=== PATIENT | male | born 1995 | race Caucasian/White ===

== ENCOUNTER 2017-10-07 11:17 | Day surgery (SDC) | payer OTHER ==
[2017-10-01 10:30] VITALS: BMI 25.1
[~2017-10-07 11:17] MED LIST: DEXAMETHASONE SOD PHOSPHATE 10 MG/ML 1 ML VIAL IV ONE; LACTATED RINGERS 1,000 ML IV SCH; ONDANSETRON ODT 4 MG TAB PO ONE; Pre Op ABX Message 1 EACH MISC MISCELLANE ONE; ceFAZolin 1,000 MG in DEXTROSE/WATER 1 50ML.BAG IVPB ONE; ceFAZolin 2,000 MG in DEXTROSE/WATER 1 50ML.BAG IVPB ONE; ceFAZolin IN SWFI 2 GM/20 ML SYRINGE IVP ONE
[2017-10-07] MEDS ORDERED: LACTATED RINGERS 1,000 ML IV ONE ×2 (11:29→14:16)
[2017-10-07] MEDS ORDERED: LIDOCAINE 1% 20 ML VIAL (10MG/ML) FOR IV START INTRADERMA ONE (11:39)
[2017-10-07] MEDS ORDERED: ONDANSETRON 4 MG/2 ML VIAL IVP ONE (11:43)
[2017-10-07] MEDS ORDERED: PROPOFOL 10 MG/ML 20 ML VIAL IV ONE (12:34)
[2017-10-07] MEDS ORDERED: MIDAZOLAM 2 MG/2 ML VIAL ONE (12:34)
[2017-10-07] MEDS ORDERED: ALBUTEROL INHALER 60 PUFF/8 GM INHALER INHALATION ONE (12:34)
[2017-10-07] MEDS ORDERED: fentaNYL (PF) 50 MCG/ML 2 ML AMP ONE (12:34)
[2017-10-07] MEDS ORDERED: MORPHINE SULFATE 10 MG/ML SYRINGE ONE (12:34)
[2017-10-07] MEDS ORDERED: SUCCINYLCHOLINE CHLORIDE 100 MG/5 ML SYR IV ONE (12:34)
[2017-10-07] MEDS ORDERED: LIDOCAINE 1% INJ 10MG/ML (20 ML MDV) ONE (12:34)
[2017-10-07] MEDS ORDERED: ceFAZolin 1,000 MG in SODIUM CHLORIDE 0.9% 1,000 ML IRRIGATION ONE (13:09)
[2017-10-07] MEDS: MEPERIDINE 50 MG/ML SYRINGE IVP ONE ×2 (14:29→14:34)
[2017-10-07 14:42] VITALS: TEMP 98.8
[2017-10-07] MEDS: MORPHINE SULFATE 4 MG/ML SYRINGE IV PRN ×2 (14:48→15:13)
--- NOTE | 2017-10-07 15:19 | OP ---
OPERATIVE REPORT DATE OF PROCEDURE: 10/07/2017. PREOPERATIVE DIAGNOSES: 1. Right knee anterior cruciate ligament rupture. 2. Right knee medial meniscus tear. 3. Right knee lateral meniscus tear. POSTOPERATIVE DIAGNOSIS: Right knee complete anterior cruciate ligament rupture. PROCEDURE PERFORMED: Right knee anterior cruciate ligament reconstruction with hamstring autograft. SURGEON: Elijah Saini MD. SURGICAL SALES REPRESENTATIVE: DORINDA Aguilar. ANESTHESIA: General endotracheal. ESTIMATED BLOOD LOSS: Minimal. TOURNIQUET TIME: 44 minutes at 250 mmHg. DRAINS: None. COMPLICATIONS: None apparent. DISPOSITION: Postanesthesia care unit preop. INDICATIONS: Mack is a 22-year-old male who injured his right knee. Physical examination and MRI are consistent with a rupture of the anterior cruciate ligament. There is also suggestion of medial and lateral meniscus tears. A long discussion with him with regard to treatment options. At this point, he does wish to proceed with operative intervention. The risks were explained to the patient which include, but are not limited to risk of infection, nerve damage, bleeding, pain, instability, deep vein thrombosis which could lead to fatal pulmonary embolism and graft rerupture. The patient understands these risks and wished to proceed with surgical procedure. EXAMINATION UNDER ANESTHESIA: Range of motion: Right full, left full. Effusion: Right mild, left none. Charlette: Right increased 5 mm with a soft end point. Left normal with good end point. Pivot shift: Right grade 1, left grade 0. Posterior drawer: Right normal with good end point. Left normal with good end point. Varus laxity: Right none, left none. Valgus laxity: Right none, left none. External rotation: Right normal, left normal. ARTHROSCOPIC FINDINGS: Suprapatellar pouch normal. Medial gutter normal. Lateral gutter normal. Patella: Normal chondral surfaces. Trochlea: Normal chondral surfaces. Patellar tracking is normal. Medial femoral condyle: Normal chondral surfaces. Medial tibial plateau: Normal chondral surfaces. Medial meniscus normal. Lateral femoral condyle: Normal chondral surfaces. Lateral tibial plateau: Normal chondral surfaces. Lateral meniscus was normal. Anterior cruciate ligament: Complete midsubstance rupture of the anterior cruciate ligament. Posterior cruciate ligament is normal. DETAILS OF PROCEDURE: The patient identified in the preoperative holding area. Surgical site was marked by both the patient myself. He was given 2 g of Ancef IV for prophylactic purposes. He was then transferred to the operative suite. He was placed supine on the operative table. General anesthetic was then administered dosed per the anesthesia without apparent complication. Examination under anesthesia was then performed of both knees. The findings noted above. The tourniquet was then placed high on the right upper thigh well-padded in preparation for surgery. The patient's right lower extremity is then prepped and draped in usual sterile fashion. Standard surgical pause undertaken to ensure that we were operating the correct site and that appropriate preoperative antibiotics were given. All staff in the room in agreement and we proceeded. The knee was then insufflated with 120 mL sterile saline solution. This was done to gradually distend the joint. A standard inferolateral portal was then made. A 30 degree arthroscope was introduced in the suprapatellar pouch. The arthroscopic pump pressure was set at 60 mmHg and maintained at that level throughout the entire case. Next utilizing an 18-gauge spinal needle topical localized placement, the inferomedial port was made under direct visualization. A standard diagnostic arthroscopy of the knee was then performed. The findings noted above. Attention first drawn to the infrapatellar notch. Very obvious midsubstance complete midsubstance rupture of the anterior cruciate ligament. The remnants of the anterior cruciate ligament then debrided with a synovial shaver. Attention then drawn to the lateral compartment knee. The meniscus was carefully probed both the superior and inferior surface of the meniscus. There was no evidence of meniscal tearing. There was some very mild fraying near the posterior root, but no evidence of any significant tearing in that region. Attention then drawn to the medial compartment. Again, the meniscus was thoroughly probed both the posterior horn, anterior horn and middle body. Both the superior and inferior surface were probed and there was no evidence of tearing. The anterior posterior root attachments were also carefully inspected and found to be intact. At this point, we proceeded with harvesting of the hamstring tendons for the autograft. The arthroscope equipment was removed from the knee. The leg was exsanguinated with an Esmarch dressing. The tourniquet was then inflated to 250 mmHg. Small longitudinal incision was then made approximately 1.5 cm medial to the tibial tubercle. Dissection was carried down through the subcutaneous tissues until the sartorius tendon was identified. The sartorius was incised using an L-shaped incision. The sartorius tendon was then retracted and the gracilis and semitendinosus tendons were identified. These tendons were then tagged with 2-0 Vicryl sutures. The tendons were then released from their insertion onto the tibia and stripped of their soft tissue attachments using a blunt technique as well as using scissors. The tendons were then harvested using a closed tendon stripper. The tendons were then taken back table where muscle fibers were scraped off of the tendons. The ends of the tendons were then whip stitched using #2 Orthocord suture. The tendons were then double the form of 4 stranded hamstring graft. The graft diameter was measured at 8 mm. cataloging assistant was critical at this portion of the case as they provided adequate exposure to safely harvest the hamstring tendons. In addition the occupational therapist assistants completed the graft preparation allowing for decreased operating time further enhancing the safety of the procedure. Attention was then returned to the knee. The remnants of the anterior cruciate ligament. I then debrided using an arthroscopic shaver. The Jones ACL guide was then placed into the knee with the tip held flush against the lateral wall of the notch. The knee was then brought into full extension and the tibial guide pin was drilled from the anteromedial tibia into the knee. The knee was then flexed and pin positioned arthroscopically assessed to ensure that it was in the proper position. The tibial tunnel was then created using a cannulated reamer equal the size of the hamstring graft which was 8 mm. A lateral notchplasty was then performed utilizing synovial shaver and a shanna type fashion. The femoral origin of the anterior cruciate ligament was clearly identified. The femoral guide pin was then placed at the center of the origin of the anterior cruciate ligament planned back wall thickness of 1 mm. Femoral tunnel was then created with a cannulated reamer to a depth of 20 mm. The size of the reamer was again same size of the hamstring graft. Next, a 4.5 mm cannulated drill was used to penetrate the lateral femoral cortex. The Biomet toggle lock femoral fixation device was opened. The graft was placed through the closed loop of the device. A Beath pin was passed through the tibial and femoral tunnels and out through the soft tissues of the lateral thigh. The lead sutures of the fixation device were then advanced were placed in the eyelet of the fixation device advanced through the tunnels and soft tissues of the lateral thigh. The device was then advanced through the tunnels and locked on the lateral femoral cortex. The closed loop was then shortened the graft advanced to the base of the femoral tunnel. Femoral fixation was excellent. The graft was then cycled 30 times. No impingement was noted on the intercondylar roof or lateral intercondylar wall. Tibial fixation was then achieved utilizing a bioabsorbable Intrafix screw and sheath. This was performed at 20 degrees of flexion with a posterior drawer force applied to the tibia. This resulted in excellent fixation. The arthroscope was placed back into the knee and the graft again visualized. Tension of the graft seen to be excellent. No impingement was noted. Full range of motion was noted. The Charlette test noted to be normal. At this point the arthroscopic equipment was removed from the knee. The tibial incision was thoroughly irrigated. Next, the tourniquet was deflated. The sartorius fascia was then closed with 2-0 Vicryl interrupted suture. The subcutaneous tissue closed with 2-0 Vicryl interrupted suture. The skin was closed with 3-0 nylon interrupted suture. The arthroscopic portals were closed with 3-0 nylon interrupted suture. Sterile compressive dressing was then applied. The patient is placed into a hinged knee brace, locked in full extension. The patient tolerated the procedure well and was transferred recovery room in good condition. REHAB PLAN: Routine anterior cruciate ligament reconstruction rehab protocol. MMODL / IJN: [id number] /
[2017-10-07] MEDS ORDERED: HYDROcodone/APAP 7.5-325MG 1 EACH TAB PO ONE ×2 (15:39→16:24)
[2017-10-07 15:47] VITALS: RESP 18
[2017-10-07 16:40] VITALS: PULSE 80
[2017-10-07 16:52] VITALS: BP 150/80
== END 2017-10-07 17:12 | disposition home or self-care (01) ==
LOC: OR 11:17
PROVIDERS: ATTEND Orthopaedic Surgery Sports Medicine
DX: S83.511A Sprain of anterior cruciate ligament of right knee, initial encounter (principal); W51.XXXA Accidental striking against or bumped into by another person, initial encounter; Y93.67 Activity, basketball; J45.909 Unspecified asthma, uncomplicated; Z79.1 Long term (current) use of non-steroidal anti-inflammatories (NSAID)
CPT/HCPCS: 29888; C1713 ×2; J2250; J2270 ×2; J1100; J2175; J2405; J0690 ×2; J2001; J3010; J0330; J2704